=== PATIENT | male | born 1990 | race Caucasian/White ===

== ENCOUNTER 2018-03-20 23:56 | Emergency (ER) | payer SELFPAY ==
[~2018-03-20 23:56] MED LIST: ANUHCS PR; ARI10 PO; BEN5 PO; CEPH-13 PO; CEPH500C24 PO; CHOL100052 PO; CIP500 PO; CIPR-214 PO; CLO5 PO; DIA5 PO; FLUO40CA76 PO; HYDR-385 PO; IBU600 PO; IBUP800T37 PO; INDO-21 PO; INDO-23 PO; LOR5/325 PO; MET500 PO; MIR; OXCA150T47 PO; PER PO; PRO25 PO; QUET50TA21 PO; RANI150C14 PO; [UNRECOGNIZED DRUG - CODE] PO; [UNRECOGNIZED DRUG - OTHER]; stool softner
--- NOTE | 2018-03-21 00:06 | ER Report ---
History and Physical Time Seen By MD: 00:05 JANEL/ANDREW CHIEF COMPLAINT: Palpitations, elevated blood pressure HISTORY OF PRESENT ILLNESS: 27-year-old male presents ambulatory to the ER complaining of palpitations for several hours. He appears diaphoretic, anxious. He does have a history of anxiety. He's been on hours antidepression' s. He also has a history of gout and hypothyroidism. He has prescription with him. He states he was on medication for blood pressure control. His unable to recall the name. He states the bottles here but it's not noted. After reviewing his medications. Patient denies alcohol or substance abuse. Patient denies leg swelling or calf pain. Patient denies recent illness. REVIEW OF SYSTEMS: Respiratory: No cough, no dyspnea. Cardiovascular: As above Gastrointestinal: No vomiting, no abdominal pain. Musculoskeletal: No back pain. Allergies: Coded Allergies: No Known Drug Allergies (Verified , 07/10/17) Home Meds Active Scripts Atenolol (ATENOLOL) 50 Mg Tablet, 1 TAB PO QDAY for bp control, #30 TAB Prov:JARED TANG DO 03/21/18 Indomethacin (INDOMETHACIN) 50 Mg Capsule, 50 MG PO TID Y for prn, #30 CAPSULE Prov:FRITZ MIKE PA-C 07/10/17 Reviewed Nurses Notes: Yes Old Medical Records Reviewed: Yes Hx Smoking: Yes Smoking Status: Current: Some Days Smoker Hx Substance Use Disorder: No Hx Alcohol Use: No Constitutional Vital Sign - Last 24 Hours 03/21/18 03/21/18 03/21/18 03/21/18 00:03 00:04 00:26 00:30 Temp 98.7 Pulse 117 99 Resp 17 20 B/P (MAP) 142/113 142/113 (123) 136/98 (111) Pulse Ox 90 93 O2 Delivery Room Air 03/21/18 03/21/18 03/21/18 03/21/18 00:45 00:50 01:00 01:05 Pulse 96 90 93 Resp 24 20 B/P (MAP) 132/100 (111) Pulse Ox 92 91 Physical Exam General Appearance: The patient is alert, has no immediate need for airway protection and no current signs of toxicity. Vital signs stable, grossly elevated blood pressure and tachycardia noted, facial appears flushed HEENT: Pupils equal and round no injection. TMs normal, oropharynx without redness or exudate Respiratory: Chest is non tender, lungs are clear to auscultation. Cardiac: regular rate and rhythm, no murmur, tachycardia Gastrointestinal: Abdomen is soft and non tender, no masses, bowel sounds normal. Musculoskeletal: Neck: Neck is supple and non tender. No lymphadenopathy, no thyromegaly Extremities have full range of motion and are non tender. No edema, no calf tenderness Skin: No rashes or lesions. DIFFERENTIAL DIAGNOSIS: After history and physical exam differential diagnosis was considered for chest pain including but not limited to myocardial ischemia, pericarditis pulmonary embolus, chest wall pain, palpitations, anxiety, sympathomimetic abuse, pleural inflammation and pulmonary infectious causes. Medical Decision Making EKG/Imaging EKG Interpretation 12 lead EK Rhythm: normal sinus rhythm at 90 bpm [place]: Incomplete right bundle branch block pattern QRS: Left anterior fascicular block ST segments: normal, no evidence of ischemia or dysrhythmia ED Course/Re-evaluation ED Course Patient was admitted to an examination room. H&P was done. The differential diagnoses was considered. Diagnostic EKG shows no evidence of ischemia. Patient's medicated with atenolol 50 mg by mouth. After an hour of observation , his heart rate and blood pressure down. He reports feeling much improved. He be discharged home on atenolol 50 mg per day. He's advised to follow-up with his primary care for reevaluation of his blood pressure in 4-5 days after he reaches a stable state. Decision to Disposition Date: Mar 21, 2018 Decision to Disposition Time: 00:55 Depart Departure Latest Vital Signs Vital Signs Date Time Temp Pulse Resp B/P (MAP) Pulse Ox O2 Delivery O2 Flow Rate FiO2 03/21/18 01:05 93 20 91 03/21/18 01:00 132/100 (111) 03/21/18 00:03 98.7 Room Air Impression: Primary Impression: Hypertension Additional Impressions: Tachycardia Anxiety Condition: Improved Disposition: HOME OR SELF-CARE Referrals: RADHA GUEVARA MD, FARRUKH MD New Scripts Atenolol (ATENOLOL) 50 Mg Tablet 1 TAB PO QDAY for bp control, #30 TAB Prov: JARED TANG DO 03/21/18 Patient Instructions: Hypertension (ED), Palpitations (ED), Tachycardia (ED) Additional Instructions: Take atenolol 50 mg per day for blood pressure control Follow-up with your primary care in 3-5 days for blood pressure recheck. You may follow up with the physician listed on your paperwork if you do not have a primary care physician Problem Qualifiers Primary Impression: Hypertension Hypertension type: unspecified Qualified Codes: I10 - Essential (primary) hypertension JARED TANG DO Mar 21, 2018 00:05
[2018-03-21] MEDS ORDERED: ATENOLOL 50 MG TAB PO ONE (00:20)
[2018-03-21] MEDS ORDERED: ATEN-1 PO (00:39)
[2018-03-21 01:00] VITALS: BP 132/100
--- NOTE | 2018-03-21 04:59 | EKG ---
[place] [facility] [place] GARRET VILLA : [id number] MR: [id number] V: [id number] EXAM DATE: ORDERING PHYSICIAN: JARED TANG TECHNOLOGIST: ANABEL Roman Reason : Blood Pressure : / mmHG Vent. Rate : 090 BPM Atrial Rate : 090 BPM P-R Int : 136 ms QRS Dur : 098 ms QT Int : 382 ms P-R-T Axes : 070 -45 058 degrees QTc Int : 467 ms Sinus rhythm Left axis deviation Nonspecific interventricular conduction delay Abnormal ECG No previous ECGs available Confirmed by LUÍS COLBY ([id number] on 03/21/2018 6:21:34 AM Referred By: Confirmed By:LUÍS COLBY
== END 2018-03-21 01:09 | disposition home or self-care (01) ==
LOC: ER 23:58
DX: I10 Essential (primary) hypertension (principal); R00.2 Palpitations; F41.9 Anxiety disorder, unspecified
CPT/HCPCS: 93005; 99283

== ENCOUNTER 2019-03-21 03:22 | Emergency (ER) | payer SELFPAY ==
[~2019-03-21 03:22] MED LIST changes: +ATEN-1 PO
--- NOTE | 2019-03-21 03:35 | ER Report ---
History and Physical Time Seen By MD: 03:30 Hx. of Stated Complaint: patient having pain in left upper jaw, started an hour ago, took motrin. HPI/ROS CHIEF COMPLAINT: jaw pain HISTORY OF PRESENT ILLNESS: This is a 28 year old male. He has upper jaw pain that started about 1 hour ago. Was eating some nuts at the time. Pain feel like back upper molars or in the cheek/jaw area. Has history of pains at times from prior injury to zygomatic arch and TMJ area, but has never followed up with this. Pain is severe, rated 10 out of 10, worse with talking, moving the jaw or eating. No change in voice. No runny nose or sore throat at this time. No ear pain or tinnitus. No nausea at this time. Allergies: Coded Allergies: No Known Drug Allergies (Verified , 07/10/17) Home Meds Active Scripts Ketorolac Tromethamine (KETOROLAC TROMETHAMINE) 10 Mg Tab, 10 MG PO Q6H PRN for PAIN, #12 TAB 0 Refills Prov:AVERY ANDREW MD 03/21/19 Hydrocodone Bit/Acetaminophen (HYDROCODON-ACETAMINOPHEN 5-325) 1 Each Tablet, 1 EACH PO Q4H PRN for PAIN, #12 TAB 0 Refills Prov:AVERY ANDREW MD 03/21/19 Amoxicillin (AMOXICILLIN) 500 Mg Capsule, 1 CAP PO Q8H, #30 CAPSULE 0 Refills Prov:AVERY ANDREW MD 03/21/19 Atenolol (ATENOLOL) 50 Mg Tablet, 1 TAB PO QDAY for bp control, #30 TAB Prov:JARED TANG DO 03/21/18 Indomethacin (INDOMETHACIN) 50 Mg Capsule, 50 MG PO TID PRN for prn, #30 CAPSULE Prov:FRITZ MIKE PA-C 07/10/17 Reviewed Nurses Notes: Yes Hx Smoking: Yes Smoking Status: Current: Some Days Smoker Hx Substance Use Disorder: No Hx Alcohol Use: No Constitutional Vital Sign - Last 24 Hours 03/21/19 03/21/19 03/21/19 03/21/19 03:27 03:52 03:53 04:00 Temp 98.2 Pulse 114 57 Resp 24 B/P (MAP) 161/121 142/94 (110) 155/105 (122) Pulse Ox 92 92 O2 Delivery Room Air 03/21/19 03/21/19 04:04 04:07 Pulse 92 Pulse Ox 92 O2 Flow Rate 2.0 Physical Exam General Appearance: Alert, acute distress due to pain. Eyes: Pupils equal and round no injection. ENT: Normal oral mucosa. Moist mucous membranes. Dental exam shows some pain with percussion of the left upper 2nd molar, but no visible cavities, abscess, fractures. Also pain over zygoma and TMJ area. Tympanic membranes are normal. No mastoid pain. Neck: Neck is supple and non tender. No lymphadenopathy. Respiratory: Chest is non tender, lungs are clear to auscultation. Cardiac: regular rate and rhythm Gastrointestinal: Abdomen is soft and non tender, bowel sounds normal. Musculoskeletal: Extremities have full range of motion. Skin: No rashes or lesions. DIFFERENTIAL DIAGNOSIS: After history and physical exam differential diagnosis was considered for what appears to be possible dental pain versus TMJ pain. Medical Decision Making ED Course/Re-evaluation ED Course Gave the patient Toradol 60mg IM and Morphine 8mg IM. Pain starting to relieve. Discussed the findings on exam with patient. Likely dental pain, but cannot rule out TMJ pain. See instructions below. Decision to Disposition Date: Mar 21, 2019 Decision to Disposition Time: 04:30 Depart Departure Latest Vital Signs Vital Signs Date Time Temp Pulse Resp B/P (MAP) Pulse Ox O2 Delivery O2 Flow Rate FiO2 03/21/19 04:07 92 92 03/21/19 04:04 2.0 03/21/19 04:00 155/105 (122) 03/21/19 03:27 98.2 24 Room Air Impression: Primary Impression: Pain, dental Condition: Improved Disposition: HOME OR SELF-CARE New Scripts Ketorolac Tromethamine (KETOROLAC TROMETHAMINE) 10 Mg Tab 10 MG PO Q6H PRN for PAIN, #12 TAB 0 Refills Prov: AVERY ANDREW MD 03/21/19 Hydrocodone Bit/Acetaminophen (HYDROCODON-ACETAMINOPHEN 5-325) 1 Each Tablet 1 EACH PO Q4H PRN for PAIN, #12 TAB 0 Refills Prov: AVERY ANDREW MD 03/21/19 Amoxicillin (AMOXICILLIN) 500 Mg Capsule 1 CAP PO Q8H, #30 CAPSULE 0 Refills Prov: AVERY ANDREW MD 03/21/19 Patient Instructions: Toothache (ED) Additional Instructions: Your pain appears to be coming from your upper left 2nd molar, however there is a component of pain that could be what we call TMJ pain (TemporoMandibular Joint) or pain from the joint of the jaw. We are going to treat dental pain with antibiotic and some pain medicine and have you follow-up with dentist. Take Amoxicillin 500mg three times a day. Take Lortab 5/325, one every 4 hours as needed for pain. Take Toradol 10mg, one every 6 hours for pain. If still having pain after seeing a dentist and they determine this is not a tooth problem, then you will need to see an ENT specialist for further evaluation. AVERY ANDREW MD Mar 21, 2019 03:35
[2019-03-21] MEDS ORDERED: MORPHINE 4 MG/ML SDV IM ONE (03:45)
[2019-03-21] MEDS ORDERED: KETOROLAC 60 MG/2 ML VIAL IM ONE (03:45)
[2019-03-21 04:30] VITALS: BP 175/127
[2019-03-21] MEDS ORDERED: AMOXICILLIN 500 MG CAP PO ONE (04:35)
[2019-03-21] MEDS ORDERED: KETOROLAC TROM 10 MG TAB TH PO ONE (04:35)
[2019-03-21] MEDS ORDERED: ACET/HYDROC 5/325MG TH ER ONLY 2 TAB/BOTTLE PO ONE (04:35)
[2019-03-21] MEDS ORDERED: KET10 PO (04:37)
[2019-03-21] MEDS ORDERED: AMOX-362 PO (04:37)
[2019-03-21] MEDS ORDERED: LOR5/325 PO (04:37)
== END 2019-03-21 04:46 | disposition home or self-care (01) ==
LOC: ER 03:49
DX: K08.89 Other specified disorders of teeth and supporting structures (principal)
CPT/HCPCS: 96372; 99284; J1885; J2270